=== PATIENT | female | born 1940 | race Two or more races ===

== ENCOUNTER 2017-03-01 13:59 | Inpatient (IN) ==
--- NOTE | 2017-03-01 14:21 | ED.PDOC ---
General ED Provider: Dr. ADRIAN RANDLE Chief Complaint: Syncope Stated Complaint: Sitting at [employer], playing slot machine, drank some water, and woke up on floor. Witnesses reportedly said she passed out and slid to floor. Patient denies any injury. Ate breakfast, but not lunch. For the past 2 weeks, her blood pressure has been running low (100s systolic). Blood sugars have been normal. Nausea & vomiting x1, shortly after waking up. Feels "sweaty" but otherwise fine. Time Seen by Physician: 14:15 Mode of Arrival: Stretcher Information Source: Patient, Family, EMT Exam Limitations: No limitations Nursing and Triage Documentation Reviewed and Agree: Yes Neurological Complaint Exam - Syncope/Near Syncope Complaint/Exam Onset/Duration: 1 hour ago, out for a few seconds Symptoms Are: Resolved Episodes Lasting: Seconds Number of Episodes: 1 Frequency of Episodes: x1 Episodes Witnessed: Yes Loss of Consciousness: Yes Associated Head Trauma: No Activity at Onset: At rest (sitting at [employer] playing slots) Aggravating: None Alleviating: Reports: Spontaneous resolution Associated Signs and Symptoms: Reports: Vomiting Related History: Similar episode (approx 2 weeks ago felt weak but no LOC. Blood sugars were low at that time.) Cardiac Risk Factors: Reports: Hypertension, Diabetes. Denies: Smoking Dysrhythmia Risk Factors: Reports: >45 years old, Underlying CAD Related Surgical History: Reports: Stent (cardiac stent x1) JVD Present: No Carotid Bruit Present: No Nystagmus Present: No Gag Reflex Present: Yes Meningeal Signs Positive: No Focal Weakness: Present: None Focal Sensory Loss: Present: None Gait: Normal [id number]: Normal Findings Romberg Test Positive: No Babinski Sign: Negative Right, Negative Left Heel to Toe Normal: Yes Shadia-Hallpike Test Positive: No Differential Diagnoses: CAD, ND, Dysrhythmia, Hypoglycemia (hypotension), Vasovagal Episode Review of Systems - Review Of Systems Constitutional: Reports: No symptoms Eyes: Reports: No symptoms Ears, Nose, Mouth, Throat: Reports: No symptoms Respiratory: Reports: No symptoms Cardiac: Reports: Syncope GI: Reports: Nausea, Vomiting (x1), Other (black, tarry stools x months " because of my cancer medicine") : Reports: No symptoms Musculoskeletal: Reports: No symptoms Skin: Reports: No symptoms Neurological: Reports: No symptoms All Other Systems: Reviewed and Negative Past Medical History - Past Medical History Endocrine: Reports: DM 2, Dyslipidemia Cardiovascular: Reports: CAD, Other (anemia (from multiple myeloma), last transfusion 1 week ago) Respiratory: Reports: None Hematological: Reports: None Gastrointestinal: Reports: None Genitourinary: Reports: None Neuro/Psych: Reports: None Musculoskeletal: Reports: None Cancer: Reports: Other (multiple myeloma) Last Menstrual Period: hysterectomy - Surgical History General Surgical History: Reports: Hysterectomy, Orthopedic (bilateral femur fractures) - Family History Family History: Reports: Unknown - Social History Smoking Status: Never smoker Hx Substance Use: No Alcohol Screening: Occasionally Lives: With family - Immunizations Tetanus Shot up to Date: No Influenza Vaccine within 12 Months: No Pneumococcal Vaccine up to Date: No Physical Exam - Physical Exam Appearance: Well-appearing, No pain distress, Well-nourished Ill-appearing: None Pain Distress: None Eyes: MARYSE, EOMI, Conjunctiva clear ENT: Ears normal, Nose normal, Oropharynx normal Neck: Supple Respiratory: Airway patent, Breath sounds clear, Breath sounds equal, Respirations nonlabored Cardiovascular: RRR, Pulses normal, No rub, No murmur GI/: Soft, Nontender, No masses, Bowel sounds normal, No Organomegaly Musculoskeletal: Normal strength, ROM intact, No edema, No calf tenderness Skin: Warm, Dry, Normal color Neurological: Sensation intact, Motor intact, Reflexes intact, Cranial nerves intact, Alert, Oriented Psychiatric: Affect appropriate, Mood appropriate Interpretation - Radiology Interpretation Radiology Interpretation By: Radiologist Radiology Results: No acute changes Exam Interpreted: CT Scan Xray Comments: head - EKG Interpretation Time of EKG #1: 14:33 Rate: Normal Rhythm: Sinus Ectopy: None [place]: NL ST Segment: Normal Interpretation: WNL Physician Notification - Case Discussed Physician Notified: Dr. Eubanks Time of Notification: 16:30 (full admit) Admit/Transition Orders Entered by ED Provider: Yes Admit To: Observation Critical Care Note - Critical Care Note Total Time (mins): 0 Course - Course Hematology/Chemistry: 03/01/17 13:00 03/01/17 13:00 Orders, Labs, Meds: Lab Review 03/01/17 03/01/17 03/01/17 13:00 13:00 13:00 WBC 9.72 RBC 2.29 L Hgb 6.5 L Hct 20.2 L MCV 88.2 MCH 28.4 MCHC 32.2 RDW Coeff of Cy 17.3 H Plt Count 125 L Neutrophils % (Manual) 70.0 Band Neutrophils % 5.0 Lymphocytes % (Manual) 16.0 Monocytes % (Manual) 6.0 Metamyelocytes % 1.0 Nucleated RBCs 1.0 Reactive Lymphocytes 2.0 Anisocytosis Not present Sodium 132 L Potassium 4.3 Chloride 102 Carbon Dioxide 22 L Anion Gap 12.3 BUN 61 H* Creatinine 1.99 H Estimated GFR (MDRD) 24.00 BUN/Creatinine Ratio 30.65 Glucose 192 H Lactic Acid 12.4 Calcium 8.9 Total Bilirubin 0.50 AST 21 ALT 10 L Alkaline Phosphatase 63 Total Creatine Kinase 16 Troponin I 0.0130 Total Protein 9.8 H Albumin 2.6 L Globulin 7.2 Albumin/Globulin Ratio 0.36 Stl Occult Blood (IFOB) Stool Occult Blood #2 Stool Occult Blood #3 03/01/17 15:50 WBC RBC Hgb Hct MCV MCH MCHC RDW Coeff of Cy Plt Count Neutrophils % (Manual) Band Neutrophils % Lymphocytes % (Manual) Monocytes % (Manual) Metamyelocytes % Nucleated RBCs Reactive Lymphocytes Anisocytosis Sodium Potassium Chloride Carbon Dioxide Anion Gap BUN Creatinine Estimated GFR (MDRD) BUN/Creatinine Ratio Glucose Lactic Acid Calcium Total Bilirubin AST ALT Alkaline Phosphatase Total Creatine Kinase Troponin I Total Protein Albumin Globulin Albumin/Globulin Ratio Stl Occult Blood (IFOB) Positive Stool Occult Blood #2 Pending Stool Occult Blood #3 Pending Orders Category Date Time Status EKG-(ED ONLY) Stat CARDIO 03/01/17 14:28 Completed CBC W/ AUTO DIFF Stat LAB 03/01/17 13:00 Completed CK [CREATINE KINASE] Stat LAB 03/01/17 13:00 Completed COMPREHENSIVE METABOLIC PANEL Stat LAB 03/01/17 13:00 Completed LACTIC ACID Stat LAB 03/01/17 13:00 Completed MANUAL DIFFERENTIAL Stat LAB 03/01/17 13:00 Completed OCCULT BLOOD, STOOL Stat LAB 03/01/17 15:50 Results RAPID DRUG SCREEN-INPATIENT [DRUG SCREEN, URINE, RAPID] LAB 03/01/17 14:28 Uncollected Stat TROPONIN I Stat LAB 03/01/17 13:00 Completed URINALYSIS C & S IF INDICATED Stat LAB 03/01/17 14:[address] HEAD W/O CONTRAST Stat RADS 03/01/17 14:28 Completed Vital Signs: Temp Pulse Resp BP Pulse Ox 03/01/17 14:03 98.5 F 72 22 99/46 L 99 Departure - Departure Time of Disposition: 16:30 Disposition: ADMITTED INPATIENT Discharge Problem: Severe anemia, Acute renal insufficiency, Dehydration Condition: Fair Pt referred to PMD for follow-up: Yes Allergies/Adverse Reactions: Allergies levofloxacin [From Levaquin] Adverse Reaction (Verified 03/01/17 14:11) Home Medications: Ambulatory Orders 1 [Unobtainable] 03/01/17 Disposition Discussed With: Patient, Family
[2017-03-01 15:19] LABS: HEMATOCRIT 20.2 % (37.0-47.0); HEMOGLOBIN 6.5 g/dl (12.0-16.0); MEAN CORPUSCULAR HEMOGLOBIN 28.4 pg (27.0-31.0); MEAN CORPUSCULAR HGB CONC 32.2 (31.8-35.4); MEAN CORPUSCULAR VOLUME 88.2 fl (81.0-99.0); PLATELET COUNT 125 10^3/uL (140-440); RED BLOOD COUNT 2.29 10^6/ul (4.20-5.40); WHITE BLOOD COUNT 9.72 K/ul (4.6-10.2)
--- NOTE | 2017-03-01 15:30 | CT ---
EXAM: CT head without contrast. HISTORY: Syncope. Fall. Initial presentation. COMPARISON: None available. TECHNIQUE: Multiple axial images of the brain were obtained from the skull base through the vertex w ithout intravenous contrast. FINDINGS: There is no intracranial hemorrhage or extraaxial collection. The james-white differentiat ion is maintained without evidence for acute large vascular territory infarction. There are areas of periventricular and subcortical white matter low attenuation. The cortical sulci and cerebral ventr icles are symmetrically enlarged. The basal cisterns are well visualized. There is no hydrocephalus , mass effect, or midline shift. The paranasal sinuses and mastoid air cells are clear. The calvari um is intact. Lucent lesion in the left parietal bone on axial image 24 and coronal image 31 may be a hemangioma. IMPRESSION: 1. No acute intracranial abnormality. 2. Chronic small vessel ischemic changes and atrophy.
[2017-03-01 15:37] LABS: ANISOCYTOSIS NOT PRESENT (NOT PRESENT)
[2017-03-01 15:45] LABS: ALBUMIN 2.6 g/dL (3.4-5.0); ALBUMIN/GLOBULIN RATIO 0.36; ANION GAP 12.3; BILIRUBIN,TOTAL 0.5 mg/dL (0.00-1.20); BUN/CREATININE RATIO 30.65; CALCIUM 8.9 mg/dL (8.2-10.2); CREATININE 1.99 mg/dL (0.60-1.30); POTASSIUM 4.3 mmol/L (3.5-5.10); TOTAL PROTEIN 9.8 g/dL (5.8-8.1); TROPONIN I 0.013 ng/ml (0.0000-0.4000)
[2017-03-01 16:06] LABS: OCCULT BLOOD INTERNAL QC 1 INTERNAL QC VALID; OCCULT BLOOD SAMPLE 1 POSITIVE (NEGATIVE)
[2017-03-01] MEDS ORDERED: BENADRYL PO STA (16:33)
[2017-03-01] MEDS ORDERED: TYLENOL PO ONE (16:33)
[2017-03-01 16:55] LABS: IMMATURE RETIC FRACTION 36.2; RETICULOCYTE % 2.2 %
[2017-03-01 18:15] LABS: FERRITIN 864.67 ng/mL (4.63-204.00); FOLATE > 20.0 ng/mL (3.1-20.5); IRON 20 ug/dL (50-170); TOTAL IRON BINDING CAPACITY 174 ug/dL (240-450)
[2017-03-01] MEDS: SODIUM CHLORIDE 1,000 ML IV SCH (19:29)
[2017-03-01 19:31] VITALS: BMI 26.4
[2017-03-01] MEDS ORDERED: PERCOCET 5-325 PO PRN (19:49)
[2017-03-01] MEDS ORDERED: LIPITOR ONE (20:55)
[2017-03-01] MEDS ORDERED: NON-FORMULARY MEDICATION (Atorvastatin Calcium [Atorvastatin Calcium] 40 MG) PO SCH ×22 (21:00)
[2017-03-01] MEDS: PRILOSEC PO SCH (21:15)
[2017-03-02 02:35] LABS: COCAIN SCREEN,URINE NEGATIVE (NEGATIVE)
[2017-03-02 02:37] LABS: BILIRUBIN,URINE Negative (NEGATIVE); KETONES,URINE Negative (NEGATIVE); LEUKOCYTE ESTERASE ,URINE Negative (NEGATIVE); NITRITE,URINE Negative (NEGATIVE); PH,URINE 5.5 (5-9); PROTEIN,URINE 1+ (NEGATIVE); URINE, BLOOD Negative (NEGATIVE)
[2017-03-02 02:38] LABS: ADD URINE MICROSCOPIC YES; BACTERIA,URINE 1+ (NOT PRESENT)
[2017-03-02] MEDS: PRILOSEC PO SCH ×2 (05:42→18:32)
[2017-03-02 06:10] LABS: IMMATURE GRANULOCYTE % (AUTO) 5.5 % (0.0-5.0); LYMPHOCYTES % (AUTO) 21.5 (10.0-50.0); MEAN CORPUSCULAR HEMOGLOBIN 28.9 pg (27.0-31.0); MEAN CORPUSCULAR HGB CONC 32.1 (31.8-35.4); MONOCYTES # (AUTO) 0.4 K/uL (0.4-2.0); MONOCYTES % (AUTO) 8.2 (0-10); NEUTROPHILS # (AUTO) 3.1 K/ul (2.0-6.9); NEUTROPHILS % (AUTO) 64.8; PLATELET COUNT 103 10^3/uL (140-440); WHITE BLOOD COUNT 4.75 K/ul (4.6-10.2)
[2017-03-02 06:15] LABS: HEMATOCRIT 16.2 % (37.0-47.0); HEMOGLOBIN 5.2 g/dl (12.0-16.0)
[2017-03-02 06:48] LABS: ANION GAP 9.1; BUN/CREATININE RATIO 34.37; CALCIUM 8.1 mg/dL (8.2-10.2); CREATININE 1.6 mg/dL (0.60-1.30); POTASSIUM 4.1 mmol/L (3.5-5.10)
[2017-03-02] MEDS: SODIUM CHLORIDE 1,000 ML IV SCH (08:17)
[2017-03-02] MEDS: AMARYL PO SCH (08:55)
[2017-03-02] MEDS: VITAMIN D PO SCH (08:56)
[2017-03-02] MEDS: ASPIRIN EC PO SCH (08:57)
[2017-03-02] MEDS ORDERED: NON-FORMULARY MEDICATION (Lisinopril [Lisinopril] 20 MG) PO SCH ×22 (09:00)
[2017-03-02] MEDS ORDERED: NON-FORMULARY MEDICATION (Cholecalciferol (Vitamin D3) [Vitamin D3] 1,000 UNIT) PO SCH ×22 (09:00)
[2017-03-02] MEDS ORDERED: NON-FORMULARY MEDICATION (Multivit-Min/Fa/Lycopene/Lut [Centrum Silver Tablet] 1 TAB) PO SCH (09:00)
[2017-03-02] MEDS ORDERED: NON-FORMULARY MEDICATION (Amlodipine Besylate [Norvasc] 10 MG) PO SCH ×22 (09:00)
[2017-03-02] MEDS: [UNRECOGNIZED DRUG - OTHER] PO SCH (09:01)
[2017-03-02] MEDS: NORVASC PO SCH (09:05)
[2017-03-02] MEDS: MULTIVITAMIN TABLET PO SCH (09:06)
[2017-03-02] MEDS: ZESTRIL PO SCH (09:06)
[2017-03-02] MEDS: OMEGA-3 FISH OIL PO SCH ×2 (09:11→20:18)
[2017-03-02] MEDS ORDERED: TYLENOL PO STA ×2 (11:52→16:35)
[2017-03-02] MEDS ORDERED: BENADRYL PO STA ×3 (11:52→16:49)
[2017-03-02 11:56] LABS: OCCULT BLOOD INTERNAL QC 2 INTERNAL QC VALID; OCCULT BLOOD INTERNAL QC 3 INTERNAL QC VALID; OCCULT BLOOD SAMPLE 2 NO SPECIMEN RECEIVED (NEGATIVE); OCCULT BLOOD SAMPLE 3 NO SPECIMEN RECEIVED (NEGATIVE)
[2017-03-02] MEDS ORDERED: LIPITOR PO SCH (21:00)
[2017-03-02 21:33] VITALS: TEMP 98.1
[2017-03-03 00:55] LABS: HEMATOCRIT 25.2 % (37.0-47.0); HEMOGLOBIN 8.3 g/dl (12.0-16.0)
[2017-03-03 05:13] LABS: HEMATOCRIT 25.8 % (37.0-47.0); HEMOGLOBIN 8.6 g/dl (12.0-16.0); MEAN CORPUSCULAR HEMOGLOBIN 27.9 pg (27.0-31.0); MEAN CORPUSCULAR HGB CONC 33.3 (31.8-35.4); MEAN CORPUSCULAR VOLUME 83.8 fl (81.0-99.0); PLATELET COUNT 109 10^3/uL (140-440); RED BLOOD COUNT 3.08 10^6/ul (4.20-5.40)
[2017-03-03 05:19] LABS: ANISOCYTOSIS NOT PRESENT (NOT PRESENT)
[2017-03-03 05:36] LABS: ANION GAP 8.8; BUN/CREATININE RATIO 24.48; CALCIUM 8.1 mg/dL (8.2-10.2); CREATININE 1.47 mg/dL (0.60-1.30); POTASSIUM 3.8 mmol/L (3.5-5.10)
[2017-03-03] MEDS: PRILOSEC PO SCH (05:47)
[2017-03-03] MEDS: AMARYL PO SCH (08:47)
[2017-03-03] MEDS: ASPIRIN EC PO SCH (08:47)
[2017-03-03] MEDS: ZESTRIL PO SCH (08:47)
[2017-03-03] MEDS: MULTIVITAMIN TABLET PO SCH (08:47)
[2017-03-03] MEDS: NORVASC PO SCH (08:47)
[2017-03-03] MEDS: [UNRECOGNIZED DRUG - OTHER] PO SCH (08:48)
[2017-03-03] MEDS: VITAMIN D PO SCH (08:48)
[2017-03-03] MEDS: SODIUM CHLORIDE 1,000 ML IV SCH (09:35)
[2017-03-03 10:58] VITALS: BP 131/58
--- NOTE | 2017-03-07 15:21 | DS ---
DATE OF SERVICE: 03/03/17 FINAL DIAGNOSIS: 1. Symptomatic severe anemia, status post blood transfusion two units. Hgb is now 8.6 from 5.2 2. Syncope from anemia 3. History of multiple myeloma on chemotherapy 4. Dyslipidemia 5. Osteoarthritis 6. DJD spine 7. Diabetes 8. Hypertension 9. Acute on chronic renal failure DISCHARGE INSTRUCTIONS: Discharge the patient home. Follow up with the PMD. The patient is driving with the family; daughter and grandson. She is aware of the risks and the benefits. The patient did have occult read positive for the blood. Advised that she should have a colonoscopy and endoscopy evaluation as an outpatient. Followup with oncologist as scheduled in [facility]. MEDICATIONS AT DISCHARGE: Norvasc Aspirin Atorvastatin Cholecalciferol Amaryl Hydrochlorothiazide Iron pill Lisinopril Zestril Prilosec Oxycodone NEW PRESCRIPTIONS: Protonix 40mg Po twice a day DIET INSTRUCTIONS: Cardiac diet ACTIVITY: As much as tolerated SMOKING: Never smoker DISEASE SPECIFIC EDUCATION: Anemia with positive blood stool Needing for the colonoscopy and endoscopy discussed and verbalized understanding. HOSPITAL COURSE: Monie Elizondo who is from [place] came to [place] along with her daughter to spend time at the [facility]. While patient was at the [facility] the patient had almost fell down on the floor and lost consciousness syncopal episode. She was brought to the emergency room. BUN was 61, creatinine 1.99, hgb was 6.5. At that time the patient was admitted with symptomatic anemia and syncopal episode. The patient had a history of multiple myeloma and the patient was recently received the blood transfusion at the beginning of the month in [place]. After admission IV fluids was started. Type and cross matched two to three units but the patient's blood was having antibodies so [place] gave the blood product but they were not sure whether the patient is going to have antibodies or not because the medication for the multiple myeloma was blocking to identify any antibodies in the patient but same risk been discussed with the patient's daughter and the grandson. Explained that there maybe chance of the transfusion reaction. Family verbalized understanding but the need of blood transfusion was done with some hemodilution. Hgb did go to the 5.2 at that time we did give a pain medication, Benadryl and Tylenol and will give two units. Hgb went up to 8.6. By next day that patient was walking up and about and did not have any dizziness and light headedness. The patient was arguing to go with the family. Advised strictly again that patient should be going and have evaluating herself with endoscopy and colonoscopy for the possible GI bleed with positive occult blood test and followup with the PMD. Followup with Oncologist. Protonix 40mg PO twice a day. TIME SPENT: MORE THAN 55 MINUTES MTDD
--- NOTE | 2017-03-07 15:29 | PN ---
DATE OF SERVICE: 03/02/17 SUBJECTIVE: The patient was not able to get blood transfusion because the patient's antibodies were not able to be tested because of the medication she took for the multiple myeloma. [place] was not sure if she had any blood antibodies. I did discuss with the family as today's hgb is 5.2 and with the stool for occult blood test positive need for the blood transfusion but at the same time as we can not detect the antibodies the chance of having a reaction is maybe high. The patient understood the significance of the blood transfusion and opted to have a blood transfusion. We will go ahead and starting one unit now with pain medications. REVIEW OF SYSTEMS: CONSTITUTIONAL: No fever, no chills. HEENT: Normal. ENDOCRINE: No weight gain, no weight loss. CVS: No angina symptoms. No CHF symptoms. No palpitations. No atypical chest pain for CAD. No shortness of breath. No PND, no orthopnea. RESPIRATORY: No cough, no hemoptysis. GI: No nausea, no vomiting. No abdominal pain. : No hematuria. No polyuria. MUSCULOSKELETAL:. No joint swelling. PSYCHIATRIC: Not anxious. No depression. No suicidal thoughts. No homicidal thoughts. SKIN: Intact. No rash. PHYSICAL EXAMINATION: V/S: blood pressure 125/60, respiratory rate 20, heart rate 77, temperature 97.8 with saturation of 97. HEENT: Normocephalic, atraumatic. Mucosa dry. Pallor positive. No icterus. NECK: Supple. No JVD, no carotid bruit. No lymphadenopathy. LUNGS: Decreased and clear to auscultation. No rales or rhonchi. HEART: S1, S2 normal. No S3. Systolic murmur, gallop or regurgitation. ABDOMEN: Soft, nontender. Bowel sounds active. No rigidity. No rebound or guarding. No CVA tenderness. EXTREMITIES: No clubbing, cyanosis or pedal edema. MUSCULOSKELETAL: No joint swelling. NEUROLOGIC: Awake, alert, oriented times three. No focal deficit. LYMPHATIC: No lymph nodes palpable. SKIN: Intact. LABS: Hgb 5.2, hct 16.2, WBC 4.75, plt count 103, sodium 134, potassium 4.1, chloride 107, bicarb 22, BUN 55, creatinine 1.60. ASSESSMENT: 1. Symptomatic Severe anemia, needing the transfusion 2. Acute on chronic renal failure 3. Multiple myeloma 4. Osteoarthritis 5. DJD spine 6. Dyslipidemia 7. Hypertension PLAN: 1. Transfusion one unit with the pain medication 2. Continue with the IV fluids 3. High risk for the transfusion reaction as antibodies were not able to be detected. TIME SPENT: More than 35 minutes MTDD
--- NOTE | 2017-03-08 08:56 | HP ---
DATE OF SERVICE: 03/01/17 CHIEF COMPLAINT: Fall down HISTORY OF PRESENT ILLNESS: The patent is a 77 year old female who came from [place] for playing in the [employer]. The patient was playing at the machine took some water and tried to stand up but the next thing she was on the floor then vomited once. The patient was cold and clammy, started responding after some time. Accu-checks were checked and 260, EMT checked the Accu-checks. The patient didn't remember after having a fall episode the patient's daughter brought to the patient to the emergency room for evaluation. The patient has a history of multiple myeloma and recent history of blood transfusion beginning of February in [place]. During the evaluation hgb was found to be 6.5, BUN 61, creatinine 1.99. CT of head was done which was negative for any stroke. At that time she was admitted to the hospital for the symptomatic anemia, acute renal failure, syncope and for blood transfusion. REVIEW OF SYSTEMS: CONSTITUTIONAL: No fever, no chills. Weakness and tiredness. Loss of consciousness. HEENT: Normal. ENDOCRINE: No weight gain; no weight loss. CVS: No chest pain. No PND, no orthopnea. No shortness of breath. No PND, no orthopnea. RESPIRATORY: No cough, no congestion. No hemoptysis. GI: No nausea, no vomiting. No abdominal pain. No melena. : No hematuria. No polyuria. MUSCULOSKELETAL: No joint swelling. PSYCHIATRIC: Not anxious. No depression. No suicidal thoughts. No homicidal thoughts. SKIN: Intact, no open lesions. PAST MEDICAL HISTORY: Coronary artery disease Dyslipidemia Hypertension Chronic kidney disease Osteoarthritis History of anemia Multiple myeloma Chemotherapy started on February 22. PAST SURGICAL HISTORY: Cataract Hip fracture repair Hysterectomy Port placement PERSONAL HISTORY: Family history is significant for diabetes MEDICATIONS: [place] 3 fatty acid Oxycodone Atorvastatin Hydrochlorothiazide Potassium [place]rum Vitamin Aspirin Norvasc Ferrous sulfate Lisinopril ALLERGIES: Levofloxacin PHYSICAL EXAMINATION: V/S: Blood pressure 99/46, respiratory rate 22, heart rate 72, temperature 98.5 with saturation 99 on room air. GENERAL: Cachetic lady laying in the bed and not in any distress. The patient's daughter is by the side of the bed. HEENT: Atraumatic, normocephalic. No scleral icterus. Pallor positive. Mucosa dry. No bruising or hematoma on the head. NECK: Supple. No JVD, no bruit. No lymphadenopathy. No thyromegaly. HEART: S1, S2 normal. Systolic murmur. No cyanosis or clubbing. No ascites. LUNGS: Decreased and clear to auscultation. No rales or rhonchi. ABDOMEN: Soft, nontender. Bowel sounds are active. No CVA tenderness. No rigidity or guarding. EXTREMITIES: No cyanosis, clubbing or pedal edema. MUSCULOSKELETAL: Normal joints, no swelling. NEUROLOGIC: The patient is awake and alert. SKIN: Intact; no open lesions. LYMPHATIC: No lymph nodes palpable. LABS: Sodium 132, potassium 4.3, chloride 102, bicarb 22, BUN 61, creatinine 1.99, WBC 9.72, hgb 6.5, hct 20.2, plt count 125. ASSESSMENT: 1. Syncope mostly from the anemia 2. Acute renal failure 3. History of multiple myeloma 4. Hypertension 5. Dyslipidemia 6. Osteoarthritis 7. DJD spine PLAN: 1. Admit patient to the regular floor 2. Type and cross match three units and transfuse 3. IV fluids 4. Hold the hydrochlorothiazide 5. Daily I&O's 6. Stool for occult blood test. TIME SPENT: MORE THAN 70 minutes MTDD
== END 2017-03-03 13:30 | disposition home or self-care (01) | DRG 812 ==
LOC: ED 13:59 → MEDSURG A 16:43
PROVIDERS: ADMIT Emergency Medicine; ATTEND Emergency Medicine
PROC: 30243N1 Transfusion of Nonautologous Red Blood Cells into Central Vein, Percutaneous Approach (ICD-10-PCS; principal; 2017-03-02)
DX: D64.9 Anemia, unspecified (principal); C90.00 Multiple myeloma not having achieved remission; N17.9 Acute kidney failure, unspecified; K92.1 Melena; R55 Syncope and collapse; I10 Essential (primary) hypertension; N18.9 Chronic kidney disease, unspecified; E11.22 Type 2 diabetes mellitus with diabetic chronic kidney disease; I12.9 Hypertensive chronic kidney disease with stage 1 through stage 4 chronic kidney disease, or unspecified chronic kidney disease; E86.0 Dehydration; R11.2 Nausea with vomiting, unspecified; W19.XXXA Unspecified fall, initial encounter; Y92.59 Other trade areas as the place of occurrence of the external cause; M19.90 Unspecified osteoarthritis, unspecified site; M47.9 Spondylosis, unspecified; Z95.828 Presence of other vascular implants and grafts; Z79.899 Other long term (current) drug therapy; R61 Generalized hyperhidrosis
CPT/HCPCS: 36415; 36430; 80048; 80053; 80306; 81001; 82272; 82550; 82607; 82728; 82746; 82962; 83540; 83550; 83605; 84466; 84484; 85007; 85014; 85018; 85025; 85045; 86850; 86880; 86900; 86922; 87086; 93005; 93010; 99284